=== PATIENT | male | born 1965 | race Caucasian/White ===

== ENCOUNTER 2021-06-22 14:00 | Outpatient (CLI) | payer OTHER, SELFPAY ==
--- NOTE | 2021-06-22 14:56 | ECG_ITS ---
Measurements Intervals [place] Rate: 85 P: 60 CT: 206 QRS: -19 QRSD: 142 T: 32 QT: 366 QTc: 437 Interpretive Statements SINUS RHYTHM BORDERLINE AV CONDUCTION DELAY RIGHT BUNDLE BRANCH BLOCK ABNORMAL ECG Electronically Signed On 06-22-2021 15:40:23 CDT by Minor Morton D.O.
[2021-06-22 15:11] LABS: Anion Gap 12 mmol/L (8-16); Blood Urea Nitrogen 26 mg/dL (9-20); Calcium 10.5 mg/dL (8.4-10.2); Carbon Dioxide 24 mmol/L (22-30); Chloride 104 mmol/L (98-107); Estimated Glomerular Filt Rate 52; Glucose 167 mg/dL (65-110); Potassium 4.7 mmol/L (3.4-5.0); Sodium 140 mmol/L (137-145)
== END 2021-06-22 14:01 | disposition home or self-care (01) ==
LOC: ANHLAB 14:28
PROVIDERS: PCP Internal Medicine; Visit Provider Orthopaedic Surgery Hand Surgery
DX: M75.101 Unspecified rotator cuff tear or rupture of right shoulder, not specified as traumatic (principal); I45.9 Conduction disorder, unspecified; I45.10 Unspecified right bundle-branch block
CPT/HCPCS: 36415; 80048; 93005